=== PATIENT | female | born 1960 | race Caucasian/White ===

== ENCOUNTER 2020-03-02 18:55 | Inpatient (IN) | payer BC, OTHER ==
[~2020-03-02] VITALS: Ht 175.3 cm; Wt 83.0 kg
[~2020-03-02 18:55] MED LIST: ANASPAZ0.125 MG SUBLING; B COMPLEX PO; B12INJ SUBQ; ESTRACE2 MG PO; FLEXERIL PO; FLOVENT HFA INH; HYDROXYZINE HCL25 M1 PO; LEVOTHYROXINE PO; LYRICA 50 MG50 MG PO; MULTIVITAMINS PO; NORCO 5-325 TA1 EACH PO; OXYCODON-ACETA1 EAC1 PO; PROAIR HFA8.5 GM INH; PROZAC40 MG PO; SYNTHROID50 MCG PO; TRAMADOL HCL50 MG PO; VENLAFAXINE HC225 MG PO
[2020-03-02 23:58] VITALS: BP 94/44
--- NOTE | 2020-03-03 03:05 | NUR ---
Pt. was directly admitted from [facility]. Pt. was at home and called her sister and texted her niece making suicidal threats with plan. Korin Almeida, is sister. Qian Beth is niece and Kamryn Cazares is patient's mother, . Ms. Almeida contacted EMS and informed them that patient called her with suicide plan. She stated that she was drinking vodka and was going to take sleeping pills to overdose. The patient told Ms. Almeida that her daughter would find her in the morning and to tell mom to scatter my ashes in [place]. EMS then contacted Ms. Beth who informed them that patient had sent her a text with suicidal ideation. She stated she was "coming home when God calls her". She also said she was going to be with her father and step-father (both ). She also conveyed her arrangement requests through text to her niece. The patient stated that she took 6 Trazadone pills and drank 2 "little bottles" of vodka. Patient confirmed these "little bottles" were the smallest available, otherwise known as "airplane bottles". Patient was then transported to [facility] by EMS. Upon arrival, patient tried to recant story of her suicidal ideation, plans and attempt. Pt.'s niece, Ms. Beth, also went to [facility] where she wrote out an Affidavit confirming patient's SI with plan and attempt. She was then transported to [facility] where she arrived at 2100.
[2020-03-03 07:50] VITALS: BP 120/72
--- NOTE | 2020-03-03 10:23 | NUR ---
PATIENT ALERT AND ORIENTED AND INDICATED HER STEP-FATHER WAS ON HOSPICE AND WEDNESDAY. PATIENT RESTING IN BED THIS AM AND ATE BREAKFAST IN BED. PATIENT COOPERATIVE WITH TREATMENT PLAN AND HAD NOT COMPLAINTS THIS AM.
--- NOTE | 2020-03-03 10:47 | NUR ---
SW attempted to complete assessment with Pt. When SW called Pt's name pt did not wake from sleep. Sw called name several times in an attempt to wake Pt. Pt remained sleep. SW will follow up with Pt at at later time
--- NOTE | 2020-03-03 10:56 | NUR ---
THIS AM PATIENT HAD NO COMPLAINS OF NAUSEA, VOMITING, HEADACHE, LIGHT SENSITIVITY, ANXIETY, HALLUCINATIONS OR VOICES. NO TREMORS NOTED.
[2020-03-03 13:33] LABS: ABSOLUTE NEUTROPHILS 3.7 thou/uL (1.4-8.2); BASOPHILS 0.6 % (0.0-2.0); EOSINOPHILS 3.9 % (0.0-3.0); HEMATOCRIT 37.9 % (37.0-47.0); HEMOGLOBIN 12.3 gm/dL (12.0-15.0); LYMPHOCYTES 26.8 % (24.0-44.0); MCHC 32.5 g/dL (28.0-37.0); MCV 92.3 fL (80.0-100.0); MONOCYTES 6.5 % (1.0-8.0); PLATELET COUNT 340 thou/uL (150-400); POLYS 62.2 % (36.0-66.0); RBC 4.11 mil/uL (4.20-5.00); RDW 14.6 % (10.5-14.5); WBC 5.9 thou/uL (4.0-11.0)
[2020-03-03 13:53] LABS: CREATININE 0.7 mg/dL (0.6-1.0); MAGNESIUM 1.9 mg/dL (1.8-2.4); PHOSPHORUS 3.5 mg/dL (2.5-4.9); POTASSIUM 3.9 mmol/L (3.5-5.1); TOTAL BILIRUBIN 0.3 mg/dL (<0.1-1.0); TOTAL PROTEIN 6.3 g/dL (6.4-8.2)
[2020-03-03 14:23] LABS: TSH 0.279 uIU/mL (0.358-3.740)
--- NOTE | 2020-03-03 16:57 | NUR ---
DINESH spoke with Pt's , Fabian Drummond [phone], concerning Pt's treatment. DINESH informed that Pt will need to be assessed by the team to establish a treatment plan and discharge plan. Mr. Drummond was wanting to know if Pt would be released by Wednesday so Pt could attend her father's . DINESH informed that discharge by that date is not guranteed as Pt will need to be assessed by the psychiartist and okayed for discharge. Mr. Drummond had no other question or concerns at this time.
[2020-03-03 19:55] VITALS: BP 119/77
--- NOTE | 2020-03-03 20:50 | EKG ---
[facility] Janie Bragg [facility] [place] [address] ELECTROCARDIOGRAM REPORT Name: PRIMO HURD Room #: [facility] ADM IN M.R.#: [id number] Admission: 03/02/20 Attend Phys: Venu Holloway DO Discharge: Date of : 58 Report #: [id number] THIS REPORT FOR: cc: Frank Lagos Reuel M. DO Couchonnal, Luis F. MD ~ THIS REPORT FOR: //name// [facility] Test Date: 2020-03-03 Test Time: 13:40:05 Pat Name: PRIMO HURD Department: Room: [facility] Gender: F Survey Research Analyst: Jaci MISTRY : 1960 Requested By: Magdalena Lombardi Order Number: [id number] MD: Anuel Arango Measurements Intervals [place] Rate: 80 P: 62 VT: 140 QRS: 34 QRSD: 93 T: 35 QT: 377 QTc: 435 Interpretive Statements Sinus rhythm Baseline wander in lead(s) II,III,aVF No previous ECG available for comparison Electronically Signed On 03-03-2020 20:48:42 CDT by Anuel Arango [email or web address] <ELECTRONICALLY SIGNED> By: Anuel Arango MD 03/03/208 134 39 Anuel Arango MD /EPI
--- NOTE | 2020-03-03 22:34 | NUR ---
PATIENT HAS BEEN RESTING IN HER BED IN HER ROOM SINCE 1900. SHE IS COOPERATIVE AND HER PHYSICAL ASSESSMENT WAS WNL. PATIENT STATES SHE DOES NOT HAVE SUICIDAL THOUGHTS AND THAT SHE WAS NOT TRYING TO KILL HERSELF WHEN SHE TOOK THE VODKA. SHE STATES THAT SHE WAS TRYING TO SLEEP. SHE HAS BEEN GRIEVING HER STEP DAD'S , THREE DAYS AGO. SHE IS VERY PLEASANT AND IS CALM AND COOPERATIVE. ASSISTED PATIENT IN CHANGING HER GOWN AND GAVE HER SCRUB PANTS TO WEAR. SHE TOOK HER LYRICA WHOLE WITH WATER. SHE STATES SHE TAKES IT FOR CHRONIC BACK PAIN SINCE SHE HAD BACK SURGERY IN 2012. SHE DENIES PAIN AT THIS TIME THOUGH. NO EDEMA NOTED. SHE STATES LBM WAS 4. ABDOMEN SOFT. PATIENT IS A/0X4. SHE IS VERY KIND AND COMPASSIONATE TO HER ROOM MATE AND REASSURES HER SHE IS OK WHEN ROOMMATE IS SCARED. WILL CONTINUE TO MONITOR.
[2020-03-04 06:28] LABS: ABSOLUTE NEUTROPHILS 2.3 thou/uL (1.4-8.2); BASOPHILS 0.5 % (0.0-2.0); EOSINOPHILS 6.9 % (0.0-3.0); HEMATOCRIT 38.2 % (37.0-47.0); HEMOGLOBIN 12.4 gm/dL (12.0-15.0); LYMPHOCYTES 37.7 % (24.0-44.0); MCHC 32.6 g/dL (28.0-37.0); MCV 92.2 fL (80.0-100.0); MONOCYTES 8.6 % (1.0-8.0); PLATELET COUNT 340 thou/uL (150-400); POLYS 46.3 % (36.0-66.0); RBC 4.14 mil/uL (4.20-5.00); RDW 14.9 % (10.5-14.5)
[2020-03-04 06:42] LABS: CALCIUM 8.3 mg/dL (8.5-10.1); CREATININE 0.6 mg/dL (0.6-1.0); MAGNESIUM 2.1 mg/dL (1.8-2.4); POTASSIUM 3.9 mmol/L (3.5-5.1)
[2020-03-04 08:08] VITALS: BP 123/80
--- NOTE | 2020-03-04 17:42 | NUR ---
SW met with pt with Dr. Kennedy. Patient denies intent to kill herself. She stated she had not slept much since this past Wednesday. During that week she had a dental surgery which caused her some pain, and her stepfather in her arms on . Pt reports on the day of admission, she was upset about a commment her made and left her parent's home to try to get some sleep. She stopped and purchased 2 (airplane size) bottles of vodka. She drank the vodka and could not sleep. She reports she discovered some Trazodone which she took multiple pills over a period of some hours (number is unknown.) She denies ideation and intention to kill herself. She reports she does not remember what she said in the text messages to her sister and niece. She identified protective factors being her and grandchildren, discussed future plans. Pt reports step-father's is Wednesday. SW discussed discharge recommendation: follow up with outpatient psychiatrist and therapist. Pt was agreeable to therapist. She reports her PCP manages her medication. SW discussed need for safety plan. Of note, other risk factor includes, pt recently laid off from her job due to COVID-19 pandemic.
--- NOTE | 2020-03-04 18:03 | NUR ---
SW informed pt [facility] is out of network for her insurance.
--- NOTE | 2020-03-04 18:04 | NUR ---
SW spoke to per pt verbal agreement. states he is willing to support with discharge recommendations. He stated he believes his sister inlaw overreacted but he is glad his is being "checked out to make sure she is ok and getting the care she needs." He agreed to family meeting tomorrow at 2 pm prior to pt's discharge.
--- NOTE | 2020-03-04 18:09 | NUR ---
SW received a call from Lyubov Rae [facility] with [facility] [phone]. She reports she responded with the police to pt's location after pt's overdose. She expressed concerns that patient's appears to be minimizing the situation and does not understand the significance of what has occurred. She has plans to follow up with the family on Wednesday and provided contact information for [facility] Intake [phone].
--- NOTE | 2020-03-04 18:26 | NUR ---
WITHDRAWN TO ROOM DURING ANY UNSTRUCTURED TIME THIS SHIFT-STATES LOUD TALKING AND YELLING OF PEERS "GET ME NERVOUS" BUT IS ABLE TO CALM SELF IN ROOM WHERE IT IS QUIET. PT DENIES SI/SH/HI-STATING "I UNDERSTAND WHY PEOPLE WOULD BE WORRIED BUT I REALLY WASN'T TRYING TO KILL MYSELF" BRIGHT AFFECT AND SOCIAL WITH STAFF AND ROOMMATE-DOES REPORT CHRONIC LOW BACK PAIN RATED A 4 OR 5 ON 1-10 SCALE-STATES SCHEDULED LYRICA AND VALIUM "HELP A LOT" AND REPORTS THAT VALIUM IS FOR MUSCLE SPASM VS ANXIETY. GOOD APPETITE. GAIT STEADY. STATES IS READY FOR DC IN AM
[2020-03-04 18:37] VITALS: BP 128/70
[2020-03-04 19:57] VITALS: BP 106/61
--- NOTE | 2020-03-05 00:17 | NUR ---
PATIENT A/OX4. SHE IS APPROPRIATE AND SMILING AND COOPERATIVE. SHE CAME OUT OF ROOM TONIGHT FOR SNACK TIME AND SAT ON COUCH AND WATCHED TV UNTIL SHE WENT TO BED. SHE HAS TAKEN HER ROOMMATE UNDER HER WING AND IS PROTECTIVE OF HER. ROOM MATE THINKS PT IS HER GRANDDAUGHTER. PATIENT DENIES SI/HI/AVH. VSS, NO EDEMA. NO COUGH, NO N/V, HEART REGULAR AND LUNGS CTA. PATIENT HAD BM TODAY. CONTINUES ON VALIUM AND LYRICA FOR CHRONIC BACK PAIN AND STATES PAIN IS USUALLY AT A 5 BUT TOLERABLE THERE. PATIENT IS THANKFUL SHE CAN BE D/C'D TO HOME TOMORROW SO SHE CAN ATTEND HER STEP FATHER'S THE FOLLOWING DAY. PATIENT SLEEPING COMFORTABLY AT THIS TIME. BED IN LOW POSITION. CONTINUING TO MONITOR.
[2020-03-05 08:59] VITALS: BP 109/74
[2020-03-05 09:30] VITALS: BP 109/74
--- NOTE | 2020-03-05 09:33 | NUR ---
PT RESTING IN BED. PT STATED SHE HAS CHRONIC BACK PAIN OF 2 ON 1-10 SCALE. PT STATED THAT LYRICA HELPS ALOT. PT STATED SHE DOES HAVE LEFT SHOULDER PAIN FROM LYING ON [place]HALT DUE TO A SEIZURE FROM BEING OUT OF HER MEDICATION. PT CALM AND SOFT SPOKEN. PT DENIES ANY SI OR HI AT THIS TIME. PT DID SAY SHE DIDN'T GET MUCH SLEEP LAST NIGHT DUE TO THE COMMOTION OF THE UNIT.
[2020-03-05] MEDS ORDERED: LYRICA 50 MG50 MG PO (12:07)
[2020-03-05] MEDS ORDERED: EFFEXOR XR75 MG PO (12:07)
[2020-03-05] MEDS ORDERED: PEPCID20 MG PO (12:08)
[2020-03-05] MEDS ORDERED: SYNTHROID50 MCG PO (12:09)
[2020-03-05 13:41] VITALS: BP 109/74
--- NOTE | 2020-03-05 13:41 | NUR ---
ADM TYLENOL 325MG 2 TABS PO FOR COMPLAINTS OF HEADACHE.
--- NOTE | 2020-03-05 13:42 | NUR ---
Pt sees Dr Jas Aguilar in [facility] [phone] fax [phone]
--- NOTE | 2020-03-05 14:05 | NUR ---
PT IS HERE TO PICK HER UP. PT UNDERSTOOD D/C ORDERS. PT BELONGINGS GIVEN TO PT. PT LEFT VIA AMBULATION TO CAR.
--- NOTE | 2020-03-05 14:09 | NUR ---
DINESH called and set up appt with Dr Jeff Cho [phone] and sent faxed updates to [phone] and left FAX confirmation packet oin the chart. DINESH also provided pt with a list of therpaists and psych in her network. This also included a handout for the national Suicicde hotline number. All of this inofrmation was also provided to pt's spouse. Pt filled out a crisis intervention plan.
--- NOTE | 2020-03-06 09:24 | D ---
[facility] [place] [address] DISCHARGE SUMMARY Name: PRIMO HURD Room #: [facility] IN M.R.#: [id number] Admission: 03/02/20 Attend Phys: Venu Holloway DO Discharge: 03/05/20 Date of : 58 Report #: [id number] THIS REPORT FOR: cc: Frank Lagos Reuel M. DO Kerstein, Andrew H. DO ~ THIS REPORT FOR: //name// CC: Venu Lagos DATE OF SERVICE: 03/05/2020 ATTENDING PHYSICIAN: Venu Holloway DO. 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 MEDICAL COMORBIDITIES AT THE TIME OF DISCHARGE: Include tobacco use disorder, hypothyroidism that was over-corrected, chronic low back pain. DISCHARGE PLAN: The patient is discharging to her home with her . knows driving, his name is Fabian. The patient was provided with crisis suicide hotline. Also, she is strongly encouraged to proceed on aftercare plans with telehealth with [facility]. Also, she has an appointment with Dr. Demond Cho. DISCHARGE DIET: Regular. No alcohol or recreational drugs. DISCHARGE MEDICATIONS: As follows: 1. Lyrica 50 mg p.o. 3 times a day, Rx was given for #90. 2. Venlafaxine extended release 225 mg p.o. daily, 30-day Rx given. 3. Famotidine 20 mg p.o. daily for GERD. 4. Multivitamin p.o. daily. 5. Continue B complex vitamin at home. 6. Continue Flovent 2 puffs inhaled p.r.n. 7. Also, vitamin B12, meant to have her continue oral supplementation of 1000 mcg daily. 8. Levothyroxine 37.5 mcg daily, Rx given for 25 mcg, #45. 9. Albuterol sulfate 2 puffs inhaled p.r.n. shortness of breath. 10. Also, the patient is prescribed Valium 10 mg up to 3 times a day by Dr. Cho. She was not given a prescription for this. I am recommending taper off Valium within 3-6 months' time given her age, history of alcoholism, also the potential lethality of it and some evidence looking at to increased risk of [address] [address] DISCHARGE SUMMARY Name: PRIMO HURD Ryan Room #: [facility] IN [facility].#: [id number] Admission: 03/02/20 Attend Phys: Venu Holloway DO Discharge: 03/05/20 Date of : 58 Report #: [id number]. REASON FOR ADMISSION THIS PAST WEEKEND: As follows: A 59-year-old female brought to the Emergency Room for a concern of suicidal ideation, allegedly sent sister texts, recent loss of the stepfather the week prior. Patient was intoxicated on alcohol with a BAL of 110. HOSPITAL COURSE: The patient was admitted to Geriatric Psychiatry Unit. She did not have any material withdrawal symptoms. She initially was remaining in her bed. Encouraged her to get dressed and have presence on the unit. They have limited group activities due to the coronavirus. I spoke with her over the phone and he came for an exit meeting. They do not have any firearms and for the stepfather is going to be the day after discharge. The patient was not suicidal or homicidal on the day of discharge. LABORATORY DATA: Significant laboratories on 03/04/2020, white count was 5.0, H and H 12.4 and 38.2, platelet count 340, not sure why she has 2 CBCs ordered, similarly with the BMPs, within normal limits except calcium 8.3, magnesium 2.1. TSH low at 0.279. B12 887. Also albumin low at 3.0 indicating suboptimal nutrition. EKG done on this admission showed a sinus rhythm, QTC of 435, QT 377, VA interval 140, rate of 80. PHYSICAL EXAMINATION: VITAL SIGNS: On the day of discharge, temperature 36.7, pulse 78, respirations 17, BP 109/74, O2 sat 98%. MUSCULOSKELETAL: Normal gait and station. MENTAL STATUS EXAMINATION: This is a well-developed female appearing stated age. Attention fair. Concentration fair. Speech is normal, rhythm and tone. Thought process is linear and goal oriented. Thought content focused on discharge. No psychomotor agitation or psychomotor retardation. Mood and affect congruent and euthymic, fair range. Denied SI or HI. Denies hopeless thoughts. No auditory, visual, or tactile hallucinations. Memory not formally tested. Insight limited. Judgment fair. Fund of knowledge average. PROGNOSIS: For this patient is fair if she engages in outpatient psychotherapy, deals with coping skills and grief and avoids alcohol. <ELECTRONICALLY SIGNED> By: Venu Holloway DO 03/06/20 0924 [id number] 35 Venu Holloway DO /nt
== END 2020-03-05 14:05 | disposition home or self-care (01) | DRG 881 ==
LOC: SBH 18:55
PROVIDERS: Internal Medicine; ADMIT Psychiatry & Neurology Psychiatry
DX: F32.9 Major depressive disorder, single episode, unspecified (principal); T14.91XA Suicide attempt, initial encounter; F10.129 Alcohol abuse with intoxication, unspecified; E03.9 Hypothyroidism, unspecified; G89.29 Other chronic pain; M54.5 Low back pain; E87.6 Hypokalemia; F43.10 Post-traumatic stress disorder, unspecified; F43.21 Adjustment disorder with depressed mood; M19.90 Unspecified osteoarthritis, unspecified site; M62.838 Other muscle spasm; Z79.899 Other long term (current) drug therapy; Z79.890 Hormone replacement therapy; X83.8XXA Intentional self-harm by other specified means, initial encounter; Y93.89 Activity, other specified; Y92.89 Other specified places as the place of occurrence of the external cause; Y99.8 Other external cause status; Z88.1 Allergy status to other antibiotic agents; Z88.2 Allergy status to sulfonamides; Z90.710 Acquired absence of both cervix and uterus; Z90.722 Acquired absence of ovaries, bilateral; Z80.1 Family history of malignant neoplasm of trachea, bronchus and lung; Z82.49 Family history of ischemic heart disease and other diseases of the circulatory system; Z87.891 Personal history of nicotine dependence
CPT/HCPCS: 10880